=== PATIENT | male | born 1980 | race African-American/Black ===

== ENCOUNTER 2017-01-29 00:30 | Emergency (ER) | payer MEDICAID, OTHER ==
[~2017-01-29] VITALS: Ht 180.3 cm; Wt 86.4 kg
[~2017-01-29 00:30] MED LIST: NOCURR; OMEP10 PO
[2017-01-29 02:53] VITALS: BP 134/83
== END 2017-01-29 02:55 | disposition home or self-care (01) ==
LOC: EMS 00:31
DX: J40 Bronchitis, not specified as acute or chronic (principal)
CPT/HCPCS: 99283

== ENCOUNTER 2017-04-12 10:18 | Emergency (ER) | payer MEDICAID, OTHER ==
[~2017-04-12] VITALS: Ht 180.3 cm; Wt 86.4 kg
[2017-04-12] MEDS ORDERED: IBUPROFEN 600 MG TABLET PO ONE (12:30)
[2017-04-12 13:53] VITALS: BP 132/80
== END 2017-04-12 13:57 | disposition home or self-care (01) ==
LOC: EMS 10:21
DX: R07.81 Pleurodynia (principal); R03.0 Elevated blood-pressure reading, without diagnosis of hypertension
CPT/HCPCS: 71046; 99285